=== PATIENT | male | born 1955 | race Caucasian/White ===

== ENCOUNTER 2021-10-14 01:20 | Day surgery (SDC) | payer MEDICARE, OTHER, SELFPAY ==
--- NOTE | 2021-10-05 09:10 | PC.NURSE ---
Report to the Outpatient Waiting Room, entrance under the green pavilion located off [facility], at time _0700 on date __10/14/21 . OR Time: __0900 . - You and your visitor will be asked a series of questions to screen for COVID 19 for your protection. - Only one visitor is allowed at this time. - The patient visitor is requested to leave or wait in car when not with patient. - A mask is required within the hospital. Patients may have clear liquids (water, carbonated beverages, clear teas, apple juice) until 3 hours prior to surgery with a maximum of 20 ounces. - No food from midnight until time of surgery - Infants may have breast milk until 4 hours before surgery, infant formula 6 hours prior to surgery. - Children will be allowed to drink immediately following surgery. If applicable, please bring a bottle or sippy cup to assist with drinking. Juice, water, soda, and popsicles are readily available. For infants on formula, please bring formula the day of surgery. Pacifiers are allowed. Take the following medications with a SIP of water the morning of surgery: NONE Medications to discontinue per physician NONE Date to take last dose Please no make-up, nail bahamian, hairspray, perfume, deodorant, or body powder the day of surgery. No jewelry (including any body piercings) or valuables the day of surgery, leave them at home. Please take a shower or bath the night before, or the morning of, surgery with an antibacterial soap. Wear comfortable, loose fitting clothing. Children are encouraged to wear pajamas. - Jewelry must be removed prior to entering the operating room. Rings and piercings that are not removed may be cut off. - The hospital will not accept responsibility for valuables. HIBICLENS SHOWER MORNING OF SURGERY - Please leave all valuables, including medications, at home the day of surgery. If you are going home after surgery, a licensed tier truck driver must drive you home. - NO public transportation without another adult. - We recommend that an adult stay with you for 24 hours following discharge. - We also recommend that you do not drive, make important decision, drink alcoholic beverages, or take any drugs that were not prescribed by your health care provider for at least 24 hours after your discharge time. For Pediatric surgeries, we recommend two adults accompany the child home (only one inside the building at this time). Follow any additional instructions given to you from your surgeon. If you or anyone in your household have experienced Covid symptoms in the past week, please notify your surgeon or the nurse liaison at the phone number below for possible testing. Telephone instructions given to _PATIENT and asked if any additional questions and then verbalized understanding. Patient advised to call surgeon office or pre surgery nurse liaison [phone] if any additional questions.
[2021-10-05 09:16] VITALS: BMI 30.2
--- NOTE | 2021-10-13 09:32 | P.PNAN_ITS ---
Anes - Initial Pre Proc Eval Procedure: Operation Date: 10/14/21 09:00 Proposed Procedures p Left Inguinal Hernia Repair - Nima Storey MD Date/Time: 10/13/21 09:32 Surgeon: Nima Storey MD Pre Op Diagnosis: Lt Ing Hernia Patient Data Age: 65 Gender: M Height: 1.75 m Weight: 93 kg Allergies Allergy/AdvReac Type Severity Reaction Status Date / Time meperidine [From Demerol] AdvReac COMBATIVE Verified 10/14/21 07:42 Home Medications Medication Instructions Recorded Confirmed Type lisinopril 10 mg tablet 10 mg PO DAILY 09/07/21 10/05/21 History hydrocodone 5 mg-acetaminophen 325 1 - 2 tablet PO Q6H PRN pain #15 10/14/21 Rx mg tablet tabs ibuprofen 600 mg tablet 600 mg PO Q6H PRN pain #14 tabs 10/14/21 Rx Patient hx anesthesia problems: none Family hx anesthesia problems: none Results Review: All pre-operative results and documents have been reviewed as part of the pre- operative evaluation. [facility] Past Medical History Medical History (Updated 10/14/21 @ 07:17 by Rickie Her MD) Hypertension Obesity (BMI 30-39.9) Family History Family History Father Brain cancer Mother Lung cancer Sibling Acute myocardial infarction Social History Social History Smoking status: Never smoker Alcohol intake: current Alcohol use details: social Spiritual care concerns: No Anes - Eval Final PreProcedure Day of Procedure 10/13/21 09:32 Patient weight: obese Heart: regular rate and rhythm Lungs: clear to auscultation Airway: Mallampati scale class II Neurological: alert and oriented Last oral intake: >/= 8 hours ASA classification: II Emergent: no Anesthetic plan: proceed Anesthesia type and monitoring: general GIVS and standard monitoring Results Review: All pre-operative results and documents have been reviewed as part of the pre- operative evaluation. Informed Consent: The patient's anesthetic plan and its attendant risks and benefits were discussed with the patient/family/POA. Questions were solicited and answers provided to the satisfaction of the patient/family/POA.
[2021-10-14] VITALS (8 sets, daily range): BP systolic 103–167; BP diastolic 58–91; PULSE 70–98; RESP 14–18; TEMP 36.2–36.4; O2SAT 94–99
[2021-10-14] MEDS: KETOROLAC 15 MG/ML VIAL (*BKC) IV PUSH (07:29)
[2021-10-14] MEDS: ACETAMINOPHEN 500 MG TABLET 1000 MG PO (07:29)
[2021-10-14] MEDS: LACTATED RINGERS 1,000 ML 30 ML IV CONT ×2 (07:31→10:08)
--- NOTE | 2021-10-14 08:25 | WPDHPUPDATE1 ---
History and Physical Update Update Date/Time: 10/14/21 08:25 History and Physical has been reviewed, including an updated exam of the patient. There are NO changes in the patient's condition. Risks, benefits, and alternatives have been discussed and questions answered. Patient agrees to proceed with procedure.
[2021-10-14] MEDS: ceFAZolin 2 GM/D5W 50 ML 2 GM/50 ML BAG IVPB (08:35)
[2021-10-14] MEDS: LIDO 1%/EPINEPHRINE/PF 1:200,000 30 ML VIAL XX (09:03)
--- NOTE | 2021-10-14 10:10 | SUR.OPER ---
Upon completion of procedure and prior to transfer from table to stretcher. CAMPUS ADMINISTRATIVE ASSISTANT noticed a tick embedded in scrotum. Tick removed with head intact. Patient moved to stretcher and transferred to PACU. Will inform Dr. Storey of tick.
--- NOTE | 2021-10-14 10:28 | W.PM.PROC2 ---
Procedure Note - Detailed Date of Procedure 10/14/21 Pre-op Diagnosis Lt Ing Hernia Post-op Diagnosis Same Procedure Performed Left inguinal hernia repair Surgeon Nima Storey MD Executive Director Of Nursing Elva RUIZ Anesthesia General (G IV S) and Local (1% lidocaine with epinephrine) Indications Patient is noted to have a left inguinal bulge that pulses with cough. It is occasionally painful. He is taken to surgery now for inguinal hernia repair Findings Patient had an indirect left inguinal hernia. He also had the start of a direct left inguinal hernia. 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 Bassini inguinal floor reconstruction was performed to repair both areas. No mesh was required. Description of Procedure Patient was taken to surgery and anesthesia was introduced. The left groin and genitalia were prepped and draped. The proposed incision was marked on the skin. Local anesthetic was infiltrated into the skin and the deeper subcutaneous tissues. Incision was made and dissection was carried down through the subcutaneous. Crossing veins were cauterized and divided. We dissected through Khari's fascia and eventually down to the external oblique aponeurosis. The ilioinguinal nerve had a somewhat unusual course but was carefully preserved during the dissection. We exposed the external ring and the external oblique aponeurosis. Local was infiltrated in the area the aponeurosis and in the area the inguinal canal contents. The external oblique was opened laterally and extended medially through the external ring. Care was taken to preserve the ilioinguinal nerve which was retracted laterally with the lateral leaf of the external oblique aponeurosis. I then mobilized the cord medially on a Sorin drain. I dissected the cord back to the internal ring. We dissected anteromedially in the cord and found a large lipoma as well as an indirect hernia sac. The sac was dissected back to the internal ring. The lipomatous tissue was abundant and was making the dissection more difficult. Went ahead and exposed the lipoma dissected it free from the cord and back to the internal ring. I amputated the lipoma at the internal ring. Lipoma was discarded. I then went back and dissected the hernia sac back to a high dissection. I twisted the hernia sac and then ligated it near its base. This was done with a 3-0 Vicryl suture ligature. I amputated the hernia sac and discarded it. The stump of the hernia sac retracted into the retroperitoneum. I then further mobilized some cremasteric fibers of the cord to skeletonize the cord and expose the spermatic cord elements adequately. At this point, I noticed there was quite a bit of bulging in the direct space which appeared to be a small direct hernia or at least starting to form a small direct hernia. With this additional hernia or at least significant weakness in the direct space, I felt that a Bassini repair would affectively treat both hernias and provide overall strength to the direct space. Using 0 Ethibond suture, I started medially and sutured transversalis fascia 1st to the pubic tubercle. Then subsequent interrupted Ethibond sutures were used to suture transversalis fascia to the reflection of the inguinal ligament. We continued with suturing until we had reapproximated the internal ring such that it would barely admit the tip of a clamp. All looked good. The repair looked quite satisfactory. I then put as Xaracoll over the inguinal canal floor. I laid the cord and the ilioinguinal nerve over the Xaracoll. The external oblique aponeurosis was closed with interrupted 3-0 Vicryl suture. The 2nd piece of Xaracoll was laid over the external oblique aponeurosis closure. I then closed Khari's fascia with interrupted 3-0 Vicryl suture. The last piece of Xaracoll was placed in the subcutaneous. The skin was closed with subcuticular interrupted 4-0 Vicryl skin suture followed by a running 4-0 M
--- NOTE | 2021-10-14 10:29 | SUR.PHASEI ---
DR MCDONALD UPDATED .
--- NOTE | 2021-10-14 10:54 | SUR.PHASEI ---
PT DROWSY, TALKATIVE. DENIES PAIN.
--- NOTE | 2021-10-14 11:05 | SUR.PHASEI ---
PT AWAKE AND TALKATIVE. USING URINAL. STATES MILD SORENESS. REFUSES PAIN MEDS AT THIS TIME. READY TO SEE FAMILY.
== END 2021-10-14 12:27 | disposition home or self-care (01) ==
PROVIDERS: PCP Internal Medicine; Visit Provider Surgery
PROC: (CPT 49505; principal; 2021-10-14 09:00)
DX: K40.90 Unilateral inguinal hernia, without obstruction or gangrene, not specified as recurrent (principal); D17.6 Benign lipomatous neoplasm of spermatic cord; I10 Essential (primary) hypertension; E66.9 Obesity, unspecified; Z68.31 Body mass index [BMI] 31.0-31.9, adult
CPT/HCPCS: 49505; A9270; J0690; J1100; J1885; J2250; J2370; J2405; J2704; J3010; J7120

== ENCOUNTER 2024-02-15 06:20 | Day surgery (SDC) | payer MEDICARE, OTHER, SELFPAY ==
[2023-11-23 06:44] VITALS: BMI 33.0
[2023-12-23 09:26] VITALS: BMI 30.3
--- NOTE | 2024-02-15 06:54 | P.PNAN_ITS ---
Anes - Initial Pre Proc Eval Procedure: Operation Date: 02/15/24 08:00 Proposed Procedures p Screening Colonoscopy - Tahir Weaver MD Date/Time: 02/15/24 06:54 Surgeon: Tahir Weaver MD Pre Op Diagnosis: Neoplasm Screening Patient Data Age: 68 Gender: M Height: 1.78 m Weight: 96 kg Allergies Allergy/AdvReac Type Severity Reaction Status Date / Time meperidine [From Demerol] AdvReac COMBATIVE Verified 02/15/24 06:59 Home Medications Medication Instructions Recorded Confirmed Type lisinopril 20 mg tablet 20 mg PO DAILY #90 tabs 11/10/23 01/27/24 Rx Patient hx anesthesia problems: none Family hx anesthesia problems: none Results Review: All pre-operative results and documents have been reviewed as part of the pre- operative evaluation. [facility] Past Medical History Medical History (Updated 02/15/24 @ 07:15 by Tahir Weaver MD) History of melanoma behind left arm Hypertension Surgical History Surgical History (Updated 11/10/23 @ 14:42 by Natalya Kruse PA-C) History of cataract extraction 05/16/23 right eye History of left inguinal hernia repair 10/14/21 Family History Family History Father Brain cancer Lung cancer Mother Lung cancer Sibling Acute myocardial infarction Social History Social History Smoking status: Never smoker Alcohol intake: current Drinks per week: 1 Alcohol use details: social Substance use: never Substance use type: does not use Lack of Transportation: No Lack of Food: Never True Current Housing: I Have Housing Concerned About Future Housing: No Difficulty Paying Gas/Electric Bills: No Difficulty Paying for Meds: No Currently Unemployed: No Difficulty w/ Childcare or Family Care: No Living arrangements: with family Occupation/Education: retired Gender identity (if verbalized by the patient): Male Sexual Orientation (if Verbalized by the Patient): Straight or Heterosexual Spiritual care concerns: No Anes - Eval Final PreProcedure Day of Procedure 02/15/24 06:54 Patient weight: obese Heart: regular rate and rhythm Lungs: clear to auscultation Airway: Mallampati scale class II Neurological: alert and oriented Last oral intake: >/= 8 hours ASA classification: III Emergent: no Anesthetic plan: proceed Anesthesia type and monitoring: general GIVS and standard monitoring Results Review: All pre-operative results and documents have been reviewed as part of the pre- operative evaluation. Informed Consent: The patient's anesthetic plan and its attendant risks and benefits were discussed with the patient/family/POA. Questions were solicited and answers provided to the satisfaction of the patient/family/POA.
[2024-02-15 07:10] VITALS: BP 138/87; PULSE 92; RESP 20; TEMP 37.2; O2SAT 96; BMI 30.2
--- NOTE | 2024-02-15 07:13 | PM.HPGS ---
History of Present Illness History of Present Illness Consent: Risks, benefits, and alternatives have been discussed and questions answered. Patient agrees to proceed with procedure. Chief complaint: Neoplasm Screening Narrative: Masoud Josue is a 68 year old male presents for screening colonoscopy. Patient's current weight appetite and bowel movements are normal. Patient denies abdominal pain. He has had no bleeding. Family history is noncontributory. Review of Systems Review of Systems: All systems reviewed & are unremarkable except as noted in HPI and below PMFSH Past Medical History Medical History (Updated 02/15/24 @ 07:15 by Tahir Weaver MD) History of melanoma behind left arm Hypertension Surgical History Surgical History (Updated 11/10/23 @ 14:42 by Natalya Kruse PA-C) History of cataract extraction 05/16/23 right eye History of left inguinal hernia repair 10/14/21 Family History Family History Father Brain cancer Lung cancer Mother Lung cancer Sibling Acute myocardial infarction Social History Social History Smoking status: Never smoker Alcohol intake: current Drinks per week: 1 Alcohol use details: social Substance use: never Substance use type: does not use Lack of Transportation: No Lack of Food: Never True Current Housing: I Have Housing Concerned About Future Housing: No Difficulty Paying Gas/Electric Bills: No Difficulty Paying for Meds: No Currently Unemployed: No Difficulty w/ Childcare or Family Care: No Living arrangements: with family Occupation/Education: retired Gender identity (if verbalized by the patient): Male Sexual Orientation (if Verbalized by the Patient): Straight or Heterosexual Spiritual care concerns: No Meds Home Medications and Allergies Home Medications Medication Instructions Recorded Confirmed Type lisinopril 20 mg tablet 20 mg PO DAILY #90 tabs 11/10/23 01/27/24 Rx Allergies Allergy/AdvReac Type Severity Reaction Status Date / Time meperidine [From Demerol] AdvReac COMBATIVE Verified 02/15/24 06:59 Exam Narrative: Physical exam reveals patient will signs stable. HEENT exam is unremarkable. Patient is anicteric. Lungs are clear to auscultation and percussion is without murmur or extra sounds. Abdomen bowel sounds are present soft nontender with no organomegaly. Digital external rectal exam normal. Assessment and Plan Assessment and plan (1) Screen for colon cancer: Code(s): Z12.11 - Encounter for screening for malignant neoplasm of colon Status: Acute Assessment and Plan: Patient presents today for screening colonoscopy. Further recommendations may be given after endoscopy.
[2024-02-15] MEDS: LACTATED RINGERS 1,000 ML 150 ML IV CONT (07:18)
[2024-02-15 08:08] VITALS: BP 135/83; PULSE 88; RESP 20; O2SAT 94
[2024-02-15 08:18] VITALS: BP 127/81; PULSE 80; RESP 20; O2SAT 95
[2024-02-15 08:28] VITALS: BP 138/85; PULSE 68; RESP 14; O2SAT 97
--- NOTE | 2024-02-15 12:30 | WPDANESPN ---
Anes - Prog Note Post-Op Date/Time: 02/15/24 12:30 Cardiovascular status: normal Respiratory status: normal Airway patency: baseline Mental status: baseline Post-Op hydration status: normal Vital Signs: Last Vital Signs Temp 37.2 C 02/15/24 07:10 Pulse 68 02/15/24 08:28 Resp 14 02/15/24 08:28 BP 138/85 02/15/24 08:28 Pulse Ox 97 02/15/24 08:28 O2 Del Method Room Air 02/15/24 08:28 Pain Score (VAS): 0 I/O: Intake & Output 02/14/24 02/15/24 02/15/24 23:59 07:59 15:59 Intake Total 650 Balance 650 Post-procedural complaints: none Patient Feedback: Patient satisfied with anesthetic care. Other Findings: Patient vital signs back to baseline. Patient denies nausea and vomiting. Patient's pain under control. Patient OK for discharge.
== END 2024-02-15 08:34 | disposition home or self-care (01) ==
PROVIDERS: PCP Physician Assistant Medical; Visit Provider Internal Medicine Gastroenterology
PROC: 0DJD8ZZ Inspection of Lower Intestinal Tract, Via Natural or Artificial Opening Endoscopic (ICD-10-PCS; CPT 45378; principal; 2024-02-15 08:00)
DX: Z12.11 Encounter for screening for malignant neoplasm of colon (principal); K57.30 Diverticulosis of large intestine without perforation or abscess without bleeding; K64.8 Other hemorrhoids
CPT/HCPCS: G0121